=== PATIENT | female | born 1940 ===

== ENCOUNTER → 2018-03-11 | Day surgery (SDC) | payer OTHER ==
[~2018-03-11] MED LIST: ASA81 MG PO; AVAPRO75 MG PO; COZAAR25 MG PO; GABAPENTIN100 MG PO; LASIX20 MG PO; METFORMIN HCL500 MG PO; PRILOSEC10 MG PO; SINGULAIR10 MG PO; ZANTAC150 MG PO
== END | disposition home or self-care (01) ==
LOC: CIR.AMB 08:16
DX: S52.531A Colles' fracture of right radius, initial encounter for closed fracture (principal)
CPT/HCPCS: 25609; 25118; 25280; L8699